=== PATIENT | female | born 1930 | race African-American/Black ===

== ENCOUNTER 2017-02-22 15:46 | Emergency (ER) | payer MEDICARE, MEDICAID ==
[~2017-02-22] VITALS: Ht 165.1 cm; Wt 70.0 kg
[~2017-02-22 15:46] MED LIST: AMIO100T4 PO; ATOR20TA65 PO; CALC-1017 PO; DIAZ-56 PO; DONE10TA4 PO; IBUP-2029 PO; LOSA1TAB37 PO; MIRT15TA6 PO; NIFE60TA18 PO; RISP0.5T19 PO
[2017-02-22 20:02] VITALS: BP 149/69
== END 2017-02-22 20:06 ==
LOC: ER 15:46
DX: R22.2 Localized swelling, mass and lump, trunk (principal); F41.9 Anxiety disorder, unspecified; F03.90 Unspecified dementia, unspecified severity, without behavioral disturbance, psychotic disturbance, mood disturbance, and anxiety; I12.9 Hypertensive chronic kidney disease with stage 1 through stage 4 chronic kidney disease, or unspecified chronic kidney disease; N18.9 Chronic kidney disease, unspecified
CPT/HCPCS: 99283

== ENCOUNTER → 2017-03-17 | Outpatient (CLI) | payer MEDICARE, MEDICAID | END | disposition home or self-care (01) | LOC: CT 10:42 | PROVIDERS: ATTEND Family Medicine Adult Medicine | DX: J44.9 Chronic obstructive pulmonary disease, unspecified (principal) | CPT/HCPCS: 71250 ==